=== PATIENT | female | born 1955 | race Caucasian/White ===

== ENCOUNTER 2021-12-02 15:29 | Emergency (ER) | payer OTHER ==
--- NOTE | 2021-12-02 18:18 | EDPHYS ---
Physician Documentation [facility] Name: Shelbie Gutiérrez Age: 66 yrs Sex: Female : 1955 Arrival Date: 12/02/2021 Time: 15:37 Bed DIS4 Private MD: ED Physician Truong Moreno HPI: 12/02 18:16 This 66 yrs old Female presents to ER via Ambulatory with complaints of Covid Test. [facility] 18:16 The patient or guardian reports cough, described as moderate. Onset: The [facility] symptoms/episode began/occurred gradually, 2 day(s) ago. Modifying factors: The symptoms are alleviated by nothing. the symptoms are aggravated by nothing. Associated signs and symptoms: Pertinent positives: fever, rhinorrhea, sore throat. It is unknown whether or not the patient has had similar symptoms in the past. Historical: - Allergies: 16:08 Augmentin; iw ROS: 18:16 Constitutional: Positive for body aches, chills. [facility] 18:16 Respiratory: Positive for cough. 18:16 Abdomen/GI: Positive for diarrhea. 18:16 All other systems are negative. Exam: 18:16 Constitutional: This is a well developed, well nourished patient who is awake, alert, jmm and in no acute distress. Head/Face: atraumatic. Eyes: EOMI, no conjunctival erythema appreciated 18:16 Neck: Trachea midline, Supple Chest/axilla: Normal chest wall appearance and motion. Cardiovascular: Regular rate and rhythm. No edema appreciated Respiratory: Normal respirations, no respiratory distress appreciated Abdomen/GI: Non distended, soft Back: Normal ROM Skin: General appearance color normal MS/ Extremity: Moves all extremities, no obvious deformities appreciated, no edema noted to the lower extremities Neuro: Awake and alert Psych: Behavior is normal, Mood is normal, Patient is cooperative and pleasant 18:16 ENT: Posterior pharynx: erythema, that is mild. Vital Signs: 16:06 BP 156 / 97; Pulse 75; Resp 16; Temp 98.1; Pulse Ox 99% on R/A; iw MDM: 16:11 Patient medically screened. [facility] 18:17 Data reviewed: vital signs, nurses notes. Counseling: I had a detailed discussion with herman the patient and/or guardian regarding: the historical points, exam findings, and any diagnostic results supporting the discharge/admit diagnosis, lab results, the need for outpatient follow up, to return to the emergency department if symptoms worsen or persist or if there are any questions or concerns that arise at home. 12/02 16:09 Order name: SARS-COV-2 RT PCR (Document "Date of Onset" if Symptomatic); Complete Time: [facility] 18:02 12/02 16:10 Order name: Influenza Screen (a \\T\\ B); Complete Time: 17:48 [facility] Administered Medications: No medications were administered Disposition: 19:03 Co-signature as Attending Physician, Truong Moreno MD. rn Disposition Summary: 12/02/21 18:18 Discharge Ordered Location: Home [facility] Condition: Stable [facility] Diagnosis - Coronavirus infection, unspecified [facility] Followup: [facility] - With: Private Physician - When: 2 - 3 days - Reason: Recheck today's complaints, Continuance of care, Re-evaluation by your physician Discharge Instructions: - Discharge Summary Sheet [facility] - COVID-19 [facility] Forms: - Medication Reconciliation Form [facility] - Thank You Letter [facility] - Antibiotic Education [facility] - Prescription Opioid Use [facility] Prescriptions: - PAXLOVID Convenience Pack - take 1 application by ORAL route 2 times per day for 5 days; 1 packet; Refills: [facility] 0, Product Selection Permitted Signatures: Dispatcher [employer] Ba Moore PA PA jmm Williams, Irene, RN RN Truong Singh MD MD rn
--- NOTE | 2021-12-02 18:18 | ER ---
Nurse's Notes [facility] Name: Shelbie Gutiérrez Age: 66 yrs Sex: Female : 1955 Arrival Date: 12/02/2021 Time: 15:37 Bed DIS4 Private MD: Diagnosis: Coronavirus infection, unspecified Presentation: 12/02 16:06 Chief complaint: Patient states: everybody in my house has tested positive for COVID, iw pt had Headache, congestion that's resolved now, still has diarrhea. Coronavirus screen: Client presents with at least one sign or symptom that may indicate coronavirus-19. Ebola Screen: Patient negative for fever greater than or equal to 101.5 degrees Fahrenheit, and additional compatible Ebola Virus Disease symptoms Patient denies exposure to infectious person. Patient denies travel to an Ebola-affected area in the 21 days before illness onset. No symptoms or risks identified at this time. Initial Sepsis Screen: Does the patient meet any 2 criteria? No. Patient's initial sepsis screen is negative. Does the patient have a suspected source of infection? No. Patient's initial sepsis screen is negative. Risk Assessment: Do you want to hurt yourself or someone else? Patient reports no desire to harm self or others. Onset of symptoms was November 30, 2021. 16:06 Acuity: DENNIS 4 iw 16:06 Method Of Arrival: Ambulatory iw Historical: - Allergies: 16:08 Augmentin; iw Screenin:24 Abuse screen: Denies threats or abuse. Denies injuries from another. Nutritional iw screening: No deficits noted. Tuberculosis screening: No symptoms or risk factors identified. Fall Risk None identified. Assessment: 16:23 General: Appears in no apparent distress. Behavior is calm, cooperative. Pain: Denies iw pain. Neuro: Lui Agitation-Sedation Scale (RASS): Level of Consciousness is awake, alert, obeys commands, Oriented to person, place, time, situation. Cardiovascular: Patient's skin is warm and dry. Respiratory: Respiratory effort is even, unlabored. GI: Reports diarrhea. Derm: Skin is intact, is healthy with good turgor. Vital Signs: 16:06 BP 156 / 97; Pulse 75; Resp 16; Temp 98.1; Pulse Ox 99% on R/A; iw ED Course: 15:37 Patient arrived in ED. mr 15:42 Ba Sevilla PA is PHCP. [facility] 15:42 Truong Moreno MD is Attending Physician. jmm 16:08 Triage completed. iw 16:08 Arm band placed on. iw 16:24 No provider procedures requiring assistance completed. Patient did not have IV access iw during this emergency room visit. 18:06 Kendra Newton, RN is Primary Nurse. iw Administered Medications: No medications were administered Medication: 16:24 VIS not applicable for this client. iw Outcome: 18:18 Discharge ordered by MD. [facility] 18:33 Discharged to home ambulatory, with family. iw 18:33 Condition: good 18:33 Discharge instructions given to patient, Instructed on discharge instructions, follow up and referral plans. medication usage, Demonstrated understanding of instructions, follow-up care, medications, Prescriptions given X 1. 18:33 Patient left the ED. iw Signatures: Ba Sevilla PA PA herman Kylee De Guzman mr Kendra Newton, RN RN iw
[2021-12-02 18:38] VITALS: BP 156/97; TEMP 98.1; O2SAT 99
== END 2021-12-02 18:33 | disposition home or self-care (01) ==
LOC: ER 15:29
DX: U07.1 COVID-19 (principal); Z88.1 Allergy status to other antibiotic agents
CPT/HCPCS: 87804 ×2; 99282; U0003

== ENCOUNTER 2022-11-30 12:52 | Emergency (ER) | payer OTHER ==
--- NOTE | 2022-11-30 14:38 | ER ---
Nurse's Notes [facility] Name: Shelbie Gutiérrez Age: 67 yrs Sex: Female : 1955 Arrival Date: 11/30/2022 Time: 12:52 Bed 12 Private MD: Diagnosis: Other bursitis of knee, right knee Presentation: 11/30 13:00 Chief complaint: Patient states: right knee feels very tender and is soft, she injured iw it three weeks ago getting out of the tub, there was some swelling this morning, feels like my knee cap needs to pop. Coronavirus screen: At this time, the client does not indicate any symptoms associated with coronavirus-19. Ebola Screen: Patient negative for fever greater than or equal to 101.5 degrees Fahrenheit, and additional compatible Ebola Virus Disease symptoms Patient denies exposure to infectious person. Patient denies travel to an Ebola-affected area in the 21 days before illness onset. No symptoms or risks identified at this time. Initial Sepsis Screen: Does the patient meet any 2 criteria? No. Patient's initial sepsis screen is negative. Does the patient have a suspected source of infection? No. Patient's initial sepsis screen is negative. Risk Assessment: Do you want to hurt yourself or someone else? Patient reports no desire to harm self or others. Onset of symptoms was November 09, 2022. 13:00 Method Of Arrival: Ambulatory iw 13:00 Acuity: DENNIS 4 iw Historical: - Allergies: 13:02 Augmentin; iw 13:02 Paxlovid (EUA); iw - Home Meds: 13:02 BP med [Active]; iw - PMHx: 13:02 Hypertensive disorder; iw - PSHx: 13:02 Appendectomy; left leg; iw 13:04 hysterecctomy; section; cyst removed from arm; iw - Immunization history:: Client reports receiving the 2nd dose of the Covid vaccine. - Social history:: Smoking status: . Screenin:15 [facility] ED Fall Risk Assessment (Adult) Score/Fall Risk Level 0 - 2 = Low Risk. Abuse eh3 screen: Denies threats or abuse. Denies injuries from another. Nutritional screening: No deficits noted. Tuberculosis screening: No symptoms or risk factors identified. Assessment: 13:15 General: Appears in no apparent distress. uncomfortable, Behavior is calm, cooperative, eh3 appropriate for age. Pain: Complains of pain in right knee. Neuro: Level of Consciousness is awake, alert, obeys commands, Oriented to person, place, time, situation. Cardiovascular: Capillary refill < 3 seconds Patient's skin is warm and dry. Respiratory: Airway is patent Respiratory effort is even, unlabored, Respiratory pattern is regular, symmetrical. GI: Abdomen is round non-distended. : No signs and/or symptoms were reported regarding the genitourinary system. EENT: No signs and/or symptoms were reported regarding the EENT system. Derm: Skin is pink, warm \T\ dry. Musculoskeletal: Circulation, motion, and sensation intact. Swelling present in right knee. Vital Signs: 13:00 BP 155 / 85; Pulse 87; Resp 16; Temp 97.8; Pulse Ox 98% ; Weight 145.15 kg; Height 5 iw ft. 5 in. ; Pain 10/10; 13:00 Body Mass Index 53.25 (145.15 kg, 165.1 cm) iw 13:00 Pain Scale: Adult iw ED Course: 12:54 Patient arrived in ED. rg4 13:02 Triage completed. iw 13:04 Arm band placed on. iw 13:05 Jitendra Bond MD is Attending Physician. sp3 13:15 Radha Ayala RN is Primary Nurse. eh3 13:15 Patient has correct armband on for positive identification. Bed in low position. Call eh3 light in reach. 14:27 Knee Right 3 View XRAY In Process Unspecified. EDMS 14:37 Himanshu Lynch MD is Referral Physician. sp3 14:53 No provider procedures requiring assistance completed. Patient did not have IV access eh3 during this emergency room visit. Administered Medications: No medications were administered Medication: 14:53 VIS not applicable for this client. eh3 Outcome: 14:38 Discharge ordered by . sp3 14:53 Discharged to home via wheelchair. eh3 14:53 Condition: stable 14:53 Discharge instructions given to patient, Instructed on discharge instructions, follow up and referral plans. medication usage, Demonstrated understanding of instructions, follow-up care, medications, Prescriptions given X 1. 14:53 Patient left the ED. eh3 Signatures: Dispatcher [employer] EDWV Kendra Newton RN RN Nehal Franz rg4 Jitendra Bond MD MD sp3 Radha Ayala, TIAGO RN eh3
--- NOTE | 2022-11-30 14:38 | EDPHYS ---
Physician Documentation [facility] Name: Shelbie Gutiérrez Age: 67 yrs Sex: Female : 1955 Arrival Date: 11/30/2022 Time: 12:52 Bed 12 Private MD: ED Physician Jitendra Bond HPI: 11/30 13:23 This 67 yrs old Female presents to ER via Ambulatory with complaints of Knee Pain. sp3 13:23 67-year-old female with history of hypertension now presents with right knee pain x3 sp3 days. Patient states that she may have twisted her but her main pain is on the anterior portion just distal to the patella. She denies any fever, distal joint pain, proximal joint pain, direct fall, direct trauma, calf swelling, shortness of breath, prolonged immobilization or travel history, or any other signs or symptoms on ROS at this time.. Historical: - Allergies: 13:02 Augmentin; iw 13:02 Paxlovid (EUA); iw - Home Meds: 13:02 BP med [Active]; iw - PMHx: 13:02 Hypertensive disorder; iw - PSHx: 13:02 Appendectomy; left leg; iw 13:04 hysterecctomy; section; cyst removed from arm; iw - Immunization history:: Client reports receiving the 2nd dose of the Covid vaccine. - Social history:: Smoking status: . ROS: 13:24 Constitutional: Negative for fever, chills, and weight loss, Eyes: Negative for injury, sp3 pain, redness, and discharge, Neck: Negative for injury, pain, and swelling, Cardiovascular: Negative for chest pain, palpitations, and edema, Respiratory: Negative for shortness of breath, cough, wheezing, and pleuritic chest pain, Abdomen/GI: Negative for abdominal pain, nausea, vomiting, diarrhea, and constipation, Back: Negative for injury and pain, Skin: Negative for injury, rash, and discoloration, Neuro: Negative for headache, weakness, numbness, tingling, and seizure, Psych: Negative for depression, anxiety, suicide ideation, homicidal ideation, and hallucinations, Allergy/Immunology: Negative for hives, rash, and allergies, Endocrine: Negative for neck swelling, polydipsia, polyuria, polyphagia, and marked weight changes. 13:24 All other systems are negative. Exam: 13:24 Constitutional: This is a well developed, well nourished patient who is awake, alert, sp3 and in no acute distress. Head/Face: Normocephalic, atraumatic. Neck: Trachea midline, no thyromegaly or masses palpated, and no cervical lymphadenopathy. Supple, full range of motion without nuchal rigidity, or vertebral point tenderness. No Meningismus. Chest/axilla: Normal chest wall appearance and motion. Nontender with no deformity. No lesions are appreciated. Cardiovascular: Regular rate and rhythm with a normal S1 and S2. No gallops, murmurs, or rubs. Normal PMI, no JVD. No pulse deficits. Respiratory: Lungs have equal breath sounds bilaterally, clear to auscultation and percussion. No rales, rhonchi or wheezes noted. No increased work of breathing, no retractions or nasal flaring. Abdomen/GI: Soft, non-tender, with normal bowel sounds. No distension or tympany. No guarding or rebound. No evidence of tenderness throughout. Skin: Warm, dry with normal turgor. Normal color with no rashes, no lesions, and no evidence of cellulitis. Neuro: Awake and alert, GCS 15, oriented to person, place, time, and situation. Cranial nerves II-XII grossly intact. Motor strength 5/5 in all extremities. Sensory grossly intact. Cerebellar exam normal. Normal gait. Psych: Awake, alert, with orientation to person, place and time. Behavior, mood, and affect are within normal limits. 13:24 Musculoskeletal/extremity: Patient is tender over the infrapatellar bursa. It is warm however not with any surface erythema. There is no distal swelling or calf tenderness. Distal pulses and neuro exam are normal. There is no laxity in the knee drawer tests are negative.. Vital Signs: 13:00 BP 155 / 85; Pulse 87; Resp 16; Temp 97.8; Pulse Ox 98% ; Weight 145.15 kg; Height 5 iw ft. 5 in. ; Pain 10/10; 13:00 Body Mass Index 53.25 (145.15 kg, 165.1 cm) iw 13:00 Pain Scale: Adult iw MDM: 13:14 Patient medically screened. sp3 13:25 Data reviewed: vital signs, nurses notes, radiologic studies. ED course: 67-year-old sp3 female with internal derangement of the knee versus bursitis versus fracture. I am not highly suspicious for derangement or fracture. If x-ray is negative, will treat for bursitis follow-up with orthopedics. She is a patient of Dr. Lynch and he can add MRI if and when needed.. 14:37 ED course: X-ray demonstrates extensive degenerative changes without acute fracture. sp3 Will discharge patient on diclofenac for bursitis and she can follow-up with Dr. Lynch.. 11/30 13:14 Order name: Knee Right 3 View XRAY sp3 Administered Medications: No medications were administered Disposition Summary: 11/30/22 14:38 Discharge Ordered Location: Home sp3 Condition: Stable sp3 Diagnosis - Other bursitis of knee, right knee sp3 Followup: sp3 - With: Himanshu Lynch MD - When: Upon discharge from the Emergency Department - Reason: Continuance of care Discharge Instructions: - Discharge Summary Sheet sp3 - Bursitis sp3 Forms: - Medication Reconciliation Form sp3 - Thank You Letter sp3 - Antibiotic Education sp3 - Prescription Opioid Use sp3 Prescriptions: - Diclofenac Sodium 75 mg Oral Tablet Sustained Release - take 1 tablet by ORAL route 2 times per day; 30 tablet; Refills: 0, Product sp3 Selection Permitted Signatures: Dispatcher [employer] Kendra Gamboa, Jitendra Conner RN, MD MD sp3
--- NOTE | 2022-11-30 14:49 | RAD REPORT ---
EXAM DESCRIPTION: RAD - Knee Right 3 View - 11/30/2022 2:25 pm CLINICAL HISTORY: PAIN COMPARISON: No comparisons TECHNIQUE: Right knee, 3 views. FINDINGS: No fracture, dislocation or periosteal reaction.No joint effusion seen. Advanced tricompar tmental osteoarthritic changes with joint space narrowing most pronounced medially. Downsloping of th e medial tibial plateau results in a degree of pelvis deformity. No soft tissue abnormality. Clinical concerns for internal derangement or occult bony injury could be further assessed with MR im aging. IMPRESSION: No acute osseus abnormality. Advanced tricompartmental osteoarthritic changes above.
[2022-11-30 14:58] VITALS: BP 155/85; TEMP 97.8; O2SAT 98
== END 2022-11-30 14:53 | disposition home or self-care (01) ==
LOC: ER 12:52
DX: M71.561 Other bursitis, not elsewhere classified, right knee (principal); Z88.1 Allergy status to other antibiotic agents; Z88.8 Allergy status to other drugs, medicaments and biological substances
CPT/HCPCS: 99283

== ENCOUNTER 2023-03-24 07:57 | Emergency (ER) | payer OTHER ==
--- NOTE | 2023-03-24 09:05 | RAD REPORT ---
EXAM DESCRIPTION: CT - C Spine Wo Con - 03/24/2023 8:46 am CLINICAL HISTORY: Pain, numbness/tingling COMPARISON: None. TECHNIQUE: Axial thin cut noncontrast CT images of the cervical spine were obtained with sagittal an d coronal reconstruction images generated and reviewed. All CT scans are performed using dose optimization technique as appropriate and may include automated exposure control or mA/KV adjustment according to patient size. FINDINGS: Cervical vertebral body height and alignment are normal. No spondylolisthesis. Straighteni ng of normal cervical lordosis which may be positional or secondary to muscle spasm. Mild multilevel endplate and facet remodeling. No disk space narrowing. Lbgk-sn-xchlnaax neural wenceslao inal narrowing, most pronounced on the left at C6-7. No fracture or acute bony abnormality. No paraspinal mass or hematoma. IMPRESSION: No acute cervical spine fracture or subluxation. Straightening of normal lordosis which may be positional or secondary to muscle spasm.
--- NOTE | 2023-03-24 09:11 | RAD REPORT ---
EXAM DESCRIPTION: [place] Single View03/24/2023 8:48 am CLINICAL HISTORY: CHEST PAIN COMPARISON: No comparisons TECHNIQUE: Portable AP view of the chest. FINDINGS: The lungs are clear. No pneumothorax or effusion. The cardiomediastinal contours are unre markable. IMPRESSION: No acute cardiopulmonary process.
[2023-03-24] MEDS ORDERED: FENTANYL CITR 100 MCG/2 ML ONE (09:12)
[2023-03-24] MEDS ORDERED: dexAMETHasone 10 MG/ML VIAL ONE (09:12)
[2023-03-24] MEDS ORDERED: KETOROLAC 30 MG/ML INJ ONE (09:12)
[2023-03-24] MEDS ORDERED: ASPIRIN 81 MG CHEWABLE TABLET ONE (09:12)
[2023-03-24] MEDS ORDERED: ONDANSETRON 4 MG/2 ML VIAL ONE (09:13)
[2023-03-24] MEDS ORDERED: NA CHLORIDE 0.9% 500 ML ONE (09:13)
[2023-03-24 09:25] LABS: Hematocrit 38.5 % (36.0-45.0); Lymphocytes % 18.8 % (15.3-44.8); MCV 91.6 fL (80-100); MPV 9.1 fL (7.6-11.3); Platelets 211 thou/uL (152-406)
[2023-03-24 09:27] LABS: Protime INR 0.98
[2023-03-24 10:32] LABS: Albumin 3.4 g/dL (3.4-5.0); Bilirubin Direct 0.3 mg/dL (0-0.2); Bilirubin Indirect, Calculated 0.9 mg/dL (0.2-0.8); Bilirubin Total 1.2 mg/dL (0.2-1.0); Magnesium 2.2 mg/dL (1.6-2.4); Potassium 3.3 mEq/L (3.5-5.1); Protein, Total 6.6 g/dL (6.4-8.2); Troponin High Sensitivity 7.1 pg/mL (<58.9)
--- NOTE | 2023-03-24 10:43 | ER ---
Nurse's Notes [facility] Name: Shelbie Gutiérrez Age: 67 yrs Sex: Female : 1955 Arrival Date: 03/24/2023 Time: 07:57 Bed 7 Private MD: Diagnosis: Cervical disc disorder with radiculopathy;Pain in left arm;Hypokalemia Presentation: 03/24 08:03 Chief complaint: Patient states: left arm pain (elbow/tricep area) x 2 days, radiates ko1 up to the back of the left ear into hairline. No falls/injuries. Has been using crutches and has had some pain under left arm. Coronavirus screen: At this time, the client does not indicate any symptoms associated with coronavirus-19. Ebola Screen: No symptoms or risks identified at this time. Initial Sepsis Screen: Does the patient meet any 2 criteria? No. Patient's initial sepsis screen is negative. Does the patient have a suspected source of infection? No. Patient's initial sepsis screen is negative. Risk Assessment: Do you want to hurt yourself or someone else? Patient reports no desire to harm self or others. Onset of symptoms was March 22, 2023 at 12:00. 08:03 Method Of Arrival: Ambulatory ko1 08:03 Acuity: DENNIS 3 ko1 Triage Assessment: 08:05 General: Appears in no apparent distress. uncomfortable, Behavior is calm, cooperative, ko1 appropriate for age. Pain: Complains of pain in left arm. Historical: - Allergies: 08:05 Augmentin; ko1 08:05 Paxlovid (EUA); ko1 - PMHx: 08:05 Hypertensive disorder; ko1 - PSHx: 08:05 Appendectomy; section; cyst removed from arm; hysterecctomy; left leg; ko1 - Immunization history:: Adult Immunizations unknown. - Social history:: Smoking status: Patient denies any tobacco usage or history of. - Family history:: not pertinent. Screenin:05 [facility] ED Fall Risk Assessment (Adult) History of falling in the last 3 months, ld1 including since admission No falls in past 3 months (0 pts). Abuse screen: Denies threats or abuse. Denies injuries from another. Nutritional screening: No deficits noted. Tuberculosis screening: No symptoms or risk factors identified. Assessment: 09:05 General: Appears in no apparent distress. comfortable, Behavior is calm, cooperative, ld1 appropriate for age. Pain: Complains of pain in left arm Pain does not radiate. Pain currently is 8 out of 10 on a pain scale. Quality of pain is described as throbbing, Is continuous. Neuro: Level of Consciousness is awake, alert, obeys commands, Oriented to person, place, time, situation. Cardiovascular: Capillary refill < 3 seconds Patient's skin is warm and dry. Respiratory: Airway is patent Respiratory effort is even, unlabored. GI: Abdomen is round non-distended. : No signs and/or symptoms were reported regarding the genitourinary system. EENT: No signs and/or symptoms were reported regarding the EENT system. Derm: No signs and/or symptoms reported regarding the dermatologic system. Musculoskeletal: No signs and/or symptoms reported regarding the musculoskeletal system. Vital Signs: 08:03 BP 169 / 75; Pulse 84; Resp 18; Temp 97.9; Pulse Ox 99% ; ko1 09:05 BP 159 / 64; Pulse 76; Resp 18; Pulse Ox 98% on R/A; Pain 8/10; ld1 09:20 BP 159 / 77; Pulse 80; Resp 18; Pulse Ox 95% on R/A; ld1 09:05 Pain Scale: Adult ld1 ED Course: 07:59 Patient arrived in ED. mr 08:05 Manish Kim MD is Attending Physician. [facility] 08:05 Triage completed. ko1 08:05 Arm band placed on right wrist. Patient placed in an exam room, on a stretcher, on ko1 pulse oximetry, Patient notified of wait time. 08:45 CT C Spine In Process Unspecified. EDMS 08:50 XRAY Chest (1 view) In Process Unspecified. EDMS 08:57 Idalia Ochoa, TIAGO is Primary Nurse. ld1 09:05 Patient has correct armband on for positive identification. Placed in gown. Bed in low ld1 position. Call light in reach. Side rails up X2. testing analyst on. Pulse ox on. NIBP on. Door closed. Noise minimized. Warm blanket given. 09:05 No provider procedures requiring assistance completed. ld1 09:19 Inserted saline lock: 20 gauge in right antecubital area, using aseptic technique. ld1 Blood collected. 09:46 recollect all tubes. kj1 10:42 Kyaw Pretty MD is Referral Physician. [facility] 10:42 Bassem Roque MD is Referral Physician. ilya 12:14 IV discontinued, intact, bleeding controlled, No redness/swelling at site. ld1 Administered Medications: 09:19 Drug: Aspirin PO Chewable Tablet 81 mg Route: PO; ld1 09:19 Drug: Ondansetron IVP 4 mg Route: IVP; Site: right antecubital; ld1 09:19 Drug: Decadron - Dexamethasone IVP 10 mg Route: IVP; Site: right antecubital; ld1 09:19 Drug: Ketorolac IVP 15 mg Route: IVP; Site: right antecubital; ld1 09:20 Drug: NS 0.9% IV 500 ml Route: IV; Rate: bolus; Site: right antecubital; ld1 09:32 Drug: fentaNYL (PF) IVP 25 mcg Route: IVP; Site: right antecubital; ld1 11:48 Drug: Potassium PO Effervescent Tablet 50 mEq Route: PO; ld1 Medication: 09:05 VIS not applicable for this client. ld1 Outcome: 10:42 Discharge ordered by . [facility] 12:14 Discharged to home via wheelchair. ld1 12:14 Condition: stable 12:14 Discharge instructions given to patient, Instructed on discharge instructions, follow up and referral plans. medication usage, Demonstrated understanding of instructions, follow-up care, medications, Prescriptions given X 4. 12:14 Patient left the ED. ld1 Signatures: Dispatcher [employer] EDMS Manish Kim MD MD cha Rivera, Mary mr Geiger, Monserrat kj1 Idalia Ochoa, RN RN ld1 Monie Muniz, RN RN ko1
--- NOTE | 2023-03-24 10:43 | EDPHYS ---
Physician Documentation [facility] Name: Shelbie Gutiérrez Age: 67 yrs Sex: Female : 1955 Arrival Date: 03/24/2023 Time: 07:57 Bed 7 Private MD: ALEISHA Physician Manish Kim HPI: 03/24 10:18 This 67 yrs old Female presents to ER via Ambulatory with complaints of Arm ilya Pain. 10:18 The patient or guardian complains of decreased range of motion, pain, that is acute. ilya The complaints affect the anterior aspect of left shoulder, left bicep, dorsal aspect of left forearm, posterior aspect of left shoulder, left tricep and palmar aspect of left forearm. Context: The problem was sustained at an unknown location. Onset: The symptoms/episode began/occurred 3 day(s) ago. Treatment prior to arrival includes: no previous treatment. Modifying factors: The symptoms are alleviated by remaining still, the symptoms are aggravated by movement. Associated signs and symptoms: Pertinent positives: pain. Severity of symptoms: At their worst the symptoms were mild, moderate, in the emergency department the symptoms are unchanged. The patient has experienced similar episodes in the past, a few times. Historical: - Allergies: 08:05 Augmentin; ko1 08:05 Paxlovid (EUA); ko1 - PMHx: 08:05 Hypertensive disorder; ko1 - PSHx: 08:05 Appendectomy; section; cyst removed from arm; hysterecctomy; left leg; ko1 - Immunization history:: Adult Immunizations unknown. - Social history:: Smoking status: Patient denies any tobacco usage or history of. - Family history:: not pertinent. ROS: 10:18 Constitutional: Negative for fever, chills, and weight loss, Eyes: Negative for injury, ilya pain, redness, and discharge, ENT: Negative for injury, pain, and discharge, Cardiovascular: Negative for chest pain, palpitations, and edema, Respiratory: Negative for shortness of breath, cough, wheezing, and pleuritic chest pain, Abdomen/GI: Negative for abdominal pain, nausea, vomiting, diarrhea, and constipation, Back: Negative for injury and pain, : Negative for injury, bleeding, discharge, and swelling, Skin: Negative for injury, rash, and discoloration, Neuro: Negative for headache, weakness, numbness, tingling, and seizure, Psych: Negative for depression, anxiety, suicide ideation, homicidal ideation, and hallucinations, Allergy/Immunology: Negative for hives, rash, and allergies, Endocrine: Negative for neck swelling, polydipsia, polyuria, polyphagia, and marked weight changes, Hematologic/Lymphatic: Negative for swollen nodes, abnormal bleeding, and unusual bruising. 10:18 Neck: Positive for pain with movement, pain at rest, tenderness. 10:18 MS/extremity: Positive for decreased range of motion, pain, tenderness, of the left arm. Exam: 10:18 Constitutional: This is a well developed, well nourished patient who is awake, alert, ilya and in no acute distress. Head/Face: Normocephalic, atraumatic. Eyes: Pupils equal round and reactive to light, extra-ocular motions intact. Lids and lashes normal. Conjunctiva and sclera are non-icteric and not injected. Cornea within normal limits. Periorbital areas with no swelling, redness, or edema. ENT: Nares patent. No nasal discharge, no septal abnormalities noted. Tympanic membranes are normal and external auditory canals are clear. Oropharynx with no redness, swelling, or masses, exudates, or evidence of obstruction, uvula midline. Mucous membranes moist. Chest/axilla: Normal chest wall appearance and motion. Nontender with no deformity. No lesions are appreciated. Cardiovascular: Regular rate and rhythm with a normal S1 and S2. No gallops, murmurs, or rubs. Normal PMI, no JVD. No pulse deficits. Respiratory: Lungs have equal breath sounds bilaterally, clear to auscultation and percussion. No rales, rhonchi or wheezes noted. No increased work of breathing, no retractions or nasal flaring. Back: No spinal tenderness. No costovertebral tenderness. Full range of motion. Female : Normal external genitalia. Skin: Warm, dry with normal turgor. Normal color with no rashes, no lesions, and no evidence of cellulitis. MS/ Extremity: Pulses equal, no cyanosis. Neurovascular intact. Full, normal range of motion. Neuro: Awake and alert, GCS 15, oriented to person, place, time, and situation. Cranial nerves II-XII grossly intact. Motor strength 5/5 in all extremities. Sensory grossly intact. Cerebellar exam normal. Normal gait. Psych: Awake, alert, with orientation to person, place and time. Behavior, mood, and affect are within normal limits. 10:18 Neck: External neck: is normal, ROM/movement: pain, that is mild, limited range of motion, that is mild, Meningeal signs: are not present, Kernig's sign is negative, Brudzinski's sign is negative, nuchal rigidity, is not appreciated. 10:18 ECG was reviewed by the Attending Physician. Vital Signs: 08:03 BP 169 / 75; Pulse 84; Resp 18; Temp 97.9; Pulse Ox 99% ; ko1 09:05 BP 159 / 64; Pulse 76; Resp 18; Pulse Ox 98% on R/A; Pain 8/10; ld1 09:20 BP 159 / 77; Pulse 80; Resp 18; Pulse Ox 95% on R/A; ld1 09:05 Pain Scale: Adult ld1 MDM: 08:05 Patient medically screened. ilya 10:25 Differential diagnosis: closed fracture, contusion, abrasion, tendonitis. Data ilya reviewed: vital signs, nurses notes, lab test result(s), EKG, radiologic studies, CT scan, plain films. Consideration of Admission/Observation Escalation of care including admission/observation considered. I considered the following discharge prescriptions or medication management in the emergency department Medications were administered in the Emergency Department. See MAR. Independent interpretation of the following test(s) in the Emergency Department EKG: See my EKG interpretation above. Test considered but Not performed: MRI: no cervical mri. Care significantly affected by the following chronic conditions: Hypertension, Obesity. 03/24 08:35 Order name: Basic Metabolic Panel; Complete Time: 10:41 [facility] 03/24 08:35 Order name: CBC with Diff; Complete Time: 10:10 [facility] 03/24 08:35 Order name: LFT's; Complete Time: 10:41 ilya 03/24 08:35 Order name: Magnesium; Complete Time: 10:41 ilya 03/24 08:35 Order name: NT PRO-BNP; Complete Time: 10:41 [facility] 03/24 08:35 Order name: PT-INR; Complete Time: 10:10 ilya 03/24 08:35 Order name: Troponin HS; Complete Time: 10:41 [facility] 03/24 08:35 Order name: XRAY Chest (1 view); Complete Time: 10:10 [facility] 03/24 08:35 Order name: CT C Spine; Complete Time: 10:10 ilya 03/24 08:35 Order name: EKG; Complete Time: 08:35 03/24 08:35 Order name: Cardiac monitoring; Complete Time: 09:32 ilya 03/24 08:35 Order name: EKG - Nurse/Tech; Complete Time: 09:32 ilya 03/24 08:35 Order name: IV Saline Lock; Complete Time: 09:19 ilya 03/24 08:35 Order name: Labs collected and sent; Complete Time: 09:19 ilya 03/24 08:35 Order name: O2 Per Protocol; Complete Time: 08:40 [facility] 03/24 08:35 Order name: O2 Sat Monitoring; Complete Time: 08:40 [facility] 03/24 09:48 Order name: Labs - recollect needed; Complete Time: 09:56 kj1 EC:18 Rate is 76 beats/min. Rhythm is regular. QRS [place] is Normal. NC interval is normal. QRS ilya interval is normal. QT interval is normal. No Q waves. T waves are Normal. No ST changes noted. Clinical impression: NSR w/ Non-specific ST/T Changes and No evidence of ischemia. Interpreted by me. Reviewed by me. Administered Medications: 09:19 Drug: Aspirin PO Chewable Tablet 81 mg Route: PO; ld1 09:19 Drug: Ondansetron IVP 4 mg Route: IVP; Site: right antecubital; ld1 09:19 Drug: Decadron - Dexamethasone IVP 10 mg Route: IVP; Site: right antecubital; ld1 09:19 Drug: Ketorolac IVP 15 mg Route: IVP; Site: right antecubital; ld1 09:20 Drug: NS 0.9% IV 500 ml Route: IV; Rate: bolus; Site: right antecubital; ld1 09:32 Drug: fentaNYL (PF) IVP 25 mcg Route: IVP; Site: right antecubital; ld1 11:48 Drug: Potassium PO Effervescent Tablet 50 mEq Route: PO; ld1 Disposition Summary: 03/24/23 10:42 Discharge Ordered Location: Home ilya Problem: new ilya Symptoms: have improved ilya Condition: Stable ilya Diagnosis - Cervical disc disorder with radiculopathy ilya - Pain in left arm ilya - Hypokalemia [facility] Followup: ilya - With: Private Physician - When: 2 - 3 days - Reason: Recheck today's complaints, Continuance of care, Re-evaluation by your physician Followup: ilya - With: - When: 2 - 3 days - Reason: Recheck today's complaints, Re-evaluation by your physician Followup: ilya - With: - When: 2 - 3 days - Reason: Recheck today's complaints, Re-evaluation by your physician Discharge Instructions: - Discharge Summary Sheet ilya - Cervical Radiculopathy ilya - Potassium Content of Foods ilya - Musculoskeletal Pain ilya - Hypokalemia ilya - Cervical Radiculopathy, [id number] [facility] Forms: - Medication Reconciliation Form ilya - Thank You Letter ilya - Antibiotic Education ilya - Prescription Opioid Use ilya - Patient Portal Instructions [facility] - Leadership Thank You Letter [facility] Prescriptions: - acetaminophen-codeine 300-30 mg Oral tablet - take 1 tablet by ORAL route every 6 hours; 20 tablet; Refills: 0, Product [facility] Selection Permitted - dexamethasone 2 mg Oral tablet - take 2 tablet by ORAL route every 12 hours; 8 tablet; Refills: 0, Product ilya Selection Permitted - diclofenac sodium 25 mg Oral tablet, delayed release (enteric coated) - take 1 tablet by ORAL route 3 times per day; 30 tablet; Refills: 0, Product [facility] Selection Permitted - Cyclobenzaprine 5 mg Oral Tablet - take 1 tablet by ORAL route 3 times per day As needed; 15 tablet; Refills: 0, [facility] Product Selection Permitted Signatures: Dispatcher [employer] Manish Parker MD MD cha Jackson, Kandis kj1 Idalia Ochoa, RN RN ld1 Monie Muniz, TIAGO RN ko1
[2023-03-24] MEDS ORDERED: POTASSIUM 25 MEQ EFFERV TAB ONE (11:55)
[2023-03-24 12:23] VITALS: TEMP 97.9
[2023-03-24 12:39] VITALS: BP 159/77; O2SAT 95
--- NOTE | 2023-03-25 16:36 | EKG ---
Test Date: 2023-03-24 Test Time: 09:25:44 Sorter/Assay Tech: PATRICK MEASUREMENT RESULTS: Intervals: Rate: 76 [place]: 216 QRSD: 86 QT: 426 QTc: 479 [place]: P: 63 NJ: 216 QRS: -37 T: 9 INTERPRETIVE STATEMENTS: Sinus rhythm with 1st degree AV block Left axis deviation Minimal voltage criteria for LVH, may be normal variant Abnormal ECG Compared to ECG 07/06/2007 14:24:05 First degree AV block now present Left-axis deviation now present Left ventricular hypertrophy now present Electronically Signed On 03-25-23 16:32:32 CDT by Bassem Roque
== END 2023-03-24 12:14 | disposition home or self-care (01) ==
LOC: ER 07:57
DX: M50.10 Cervical disc disorder with radiculopathy, unspecified cervical region (principal); E87.6 Hypokalemia; I10 Essential (primary) hypertension; Z88.1 Allergy status to other antibiotic agents; Z88.8 Allergy status to other drugs, medicaments and biological substances
CPT/HCPCS: 93005; 85025; 80048; 36415; 83735; 85610; 80076; 84484; 83880; 72125; 71045; 96375; 96374; 99285; J3010; J1100; J2405; J7040